=== PATIENT | male | born 1985 | race African-American/Black ===

== ENCOUNTER 2018-03-19 13:25 | Emergency (ER) | payer MEDICAID ==
[~2018-03-19] VITALS: Ht 188 cm; Wt 122.0 kg
[2018-03-19 14:53] LABS: BASOPHILS # (AUTO) 0.1 X10'3 (0-0.2); BASOPHILS % (AUTO) 1.2 % (0-1); EOSINOPHILS # (AUTO) 0.4 X10'3 (0-0.9); EOSINOPHILS % (AUTO) 3.7 % (0-6); HEMOGLOBIN 9.3 g/dl (14.0-17.9); LYMPHOCYTES # (AUTO) 1.8 X10'3 (1.1-4.8); LYMPHOCYTES % (AUTO) 15.3 % (21-51); MEAN CORPUSCULAR HEMOGLOBIN 27.2 PG (27.0-31.0); MEAN CORPUSCULAR HGB CONC 32.1 % (33.0-36.5); MEAN CORPUSCULAR VOLUME 84.8 FL (78-98); MEAN PLATELET VOLUME 6.1 FL (7.4-10.4); MONOCYTES # (AUTO) 0.7 X10'3 (0-0.9); MONOCYTES % (AUTO) 5.7 % (2-12); NEUTROPHILS # (AUTO) 8.5 X10'3 (1.8-7.7); NEUTROPHILS % (AUTO) 74.1 % (42-75); RED BLOOD COUNT 3.42 X10'6 (4.70-6.10); WHITE BLOOD COUNT 11.4 X10'3 (4.5-11.0)
[2018-03-19 14:54] LABS: INR 1.1 INR; PARTIAL THROMBOPLASTIN TIME 27 SECONDS (22-32); PROTHROMBIN TIME 11.5 SECONDS (9.0-12.0)
[2018-03-19 15:05] LABS: ALANINE AMINOTRANSFERASE 41 U/L (12-78); ALBUMIN/GLOBULIN RATIO 0.6 (1.1-1.5); ALKALINE PHOSPHATASE 99 IU/L (46-116); ANION GAP 8 (8-16); ASPARTATE AMINO TRANSFERASE 33 U/L (10-37); BILIRUBIN,TOTAL 0.4 MG/DL (0.1-1.0); BLOOD UREA NITROGEN 15 MG/DL (7-18); BUN/CREATININE RATIO 16.7 (5.4-32.0); CALCIUM 9.2 MG/DL (8.5-10.1); CHLORIDE 104 MMOL/L (99-107); GLUCOSE 97 MG/DL (70-104); POTASSIUM 4.4 MMOL/L (3.5-5.1); SODIUM 140 MMOL/L (135-145); TOTAL CARBON DIOXIDE 27.9 MMOL/L (24-32); TOTAL PROTEIN 8.4 G/DL (6.4-8.2); eGFR > 90 ML/MIN
[2018-03-19] MEDS ORDERED: normal saline 1000ML IV soln IVB ONE (15:05)
[2018-03-19 15:08] LABS: PLATELET COUNT 1000 X10'3 (140-440)
[2018-03-19 15:13] LABS: ANISOCYTOSIS 1+; PLATELET ESTIMATE INCREASED
[2018-03-19 15:14] LABS: HYPOCHROMASIA 1+; POLYCHROMASIA 1+
[2018-03-19 15:15] LABS: SCHISTOCYTES FEW
[2018-03-19] MEDS ORDERED: iohexol 350MG/ML 100ml bottle IV ONE (16:00)
[2018-03-19] MEDS ORDERED: ketorolac trometh. 30mg/ml inj. IV ONE (16:40)
[2018-03-19 16:46] LABS: CLARITY,URINE CLEAR (Clear); COLOR,URINE YELLOW (Yellow); GLUCOSE, URINE NEGATIVE (Neg); KETONES,URINE NEGATIVE (Neg); LEUKOCYTE ESTERASE ,URINE NEGATIVE (Neg); NITRITES, URINE NEGATIVE (Neg); OCCULT BLOOD,URINE NEGATIVE (Neg); PROTEIN,URINE NEGATIVE (Neg); UROBILINOGEN,URINE 0.2 E.U/dL (0.2-1.0)
[2018-03-19 16:48] LABS: UA COLLECTION TYPE VOIDED
[2018-03-19 16:58] LABS: URINE AMPHETAMINE SCREEN NEGATIVE (Neg); URINE BARBITUATE SCREEN NEGATIVE (Neg); URINE BENZODIAZEPINES SCREEN NEGATIVE (Neg); URINE CANNABINOID SCREEN POSITIVE (Neg); URINE COCAINE SCREEN NEGATIVE (Neg); URINE METHADONE SCREEN NEGATIVE (Neg); URINE OPIATE SCREEN POSITIVE (Neg); URINE PHENCYCLIDINE SCREEN NEGATIVE (Neg)
[2018-03-19 17:44] VITALS: BP 139/79
[2018-03-19] MEDS ORDERED: CefTRIAXone 2gm/D5W 50ml 50 ML IV ONE (17:45)
[2018-03-19] MEDS ORDERED: clindamycin phosphate inj 600 MG in normal saline 50ml IV soln 50 ML IV ONE (17:45)
[2018-03-19] MEDS ORDERED: clindamycin 600mg/D5W 50ml 50 ML IV ONE (17:50)
[2018-03-19] MEDS ORDERED: HYDROcodone/acetaminophen 5mg/325mg tablet PO ONE (18:45)
[2018-03-19] MEDS ORDERED: HYDR-3965 PO (20:37)
== END 2018-03-19 21:32 | disposition home or self-care (01) ==
LOC: ER 13:27
DX: M79.605 Pain in left leg (principal); Z48.02 Encounter for removal of sutures
CPT/HCPCS: 36415; 71045; 73701; 80053; 80305; 81003; 83605; 84145; 85025; 85610; 85730; 87040; 96365; 96367; 96375; 99285; A6449; J0696; J1885; J3490; J7030; Q9967; J7040

== ENCOUNTER 2019-09-05 14:18 | Emergency (ER) | payer MEDICAID ==
[~2019-09-05] VITALS: Ht 190.5 cm; Wt 145.0 kg
[2019-09-05] MEDS ORDERED: ipratropium/albuterol 3ml nebule NEB ONE (14:50)
[2019-09-05 15:24] VITALS: BP 150/97
[2019-09-05] MEDS ORDERED: ALBU8HFA PO (15:28)
[2019-09-05] MEDS ORDERED: CYCL-1 PO (15:28)
[2019-09-05] MEDS ORDERED: IBUP-1984 PO (15:28)
== END 2019-09-05 15:38 | disposition home or self-care (01) ==
LOC: ER 14:19
DX: J45.909 Unspecified asthma, uncomplicated (principal); F10.99 Alcohol use, unspecified with unspecified alcohol-induced disorder; Z79.899 Other long term (current) drug therapy; Y90.9 Presence of alcohol in blood, level not specified
CPT/HCPCS: 93005; 94640; 94760; 99283

== ENCOUNTER 2019-10-04 09:24 | Emergency (ER) | payer MEDICAID ==
[~2019-10-04] VITALS: Ht 190.5 cm; Wt 135.0 kg
[~2019-10-04 09:24] MED LIST: CYCL-1 PO
[2019-10-04 09:42] VITALS: BP 133/85
--- NOTE | 2019-10-04 10:12 | NUR ---
Patient from out of town and forgot his inhaler. Needs rx for new one.
[2019-10-04] MEDS ORDERED: ALBU18HF2 INH (11:32)
[2019-10-04] MEDS ORDERED: INHA1INH2 (11:32)
[2019-10-04] MEDS ORDERED: ipratropium/albuterol 3ml nebule NEB ONE (11:35)
== END 2019-10-04 12:19 | disposition home or self-care (01) ==
LOC: ER 09:25
DX: J45.909 Unspecified asthma, uncomplicated (principal); F17.200 Nicotine dependence, unspecified, uncomplicated; Z79.899 Other long term (current) drug therapy
CPT/HCPCS: 94640; 99283

== ENCOUNTER 2019-10-05 10:18 | Emergency (ER) | payer MEDICAID ==
[~2019-10-05] VITALS: Ht 190.5 cm; Wt 136.6 kg
[~2019-10-05 10:18] MED LIST changes: +ALBU18HF2 INH; +INHA1INH2
[2019-10-05 10:26] VITALS: BP 155/80
== END 2019-10-05 13:09 | disposition left against medical advice (07) ==
LOC: ER 10:18
DX: M25.562 Pain in left knee (principal); Z53.21 Procedure and treatment not carried out due to patient leaving prior to being seen by health care provider